=== PATIENT | male | born 1960 | race Caucasian/White ===

== ENCOUNTER 2017-04-13 13:20 | Day surgery (SDC) | payer OTHER ==
[~2017-04-13] VITALS: Ht 167.6 cm; Wt 93.4 kg
[~2017-04-13 13:20] MED LIST: B-1100 MG PO; FLECAINIDE ACE100 MG PO; FLECAINIDE ACET50 MG PO; FOLIC ACID1 MG PO; LOPRESSOR100 M1 PO; NEURONTIN300 MG PO; PERCOCET 5/31 TABLET PO; PRADAXA150 MG PO; PRADAXA75 MG PO; PROTONIX40 MG PO; THERAGRAN1 TABLET PO; VITAMIN B-1100 MG PO; VITAMIN D31000 UNIT PO
== END 2017-04-13 14:58 | disposition home or self-care (01) ==
LOC: PAIN 13:20 → SDC 14:30 → PAIN 14:58
DX: M47.816 Spondylosis without myelopathy or radiculopathy, lumbar region (principal); M51.36 Other intervertebral disc degeneration, lumbar region; M48.061 Spinal stenosis, lumbar region without neurogenic claudication; M54.16 Radiculopathy, lumbar region; G89.29 Other chronic pain; I48.91 Unspecified atrial fibrillation; F10.10 Alcohol abuse, uncomplicated; I10 Essential (primary) hypertension; K86.9 Disease of pancreas, unspecified
CPT/HCPCS: J1030; J2250; J3010; S0020

== ENCOUNTER 2017-05-01 13:09 | Day surgery (SDC) | payer OTHER ==
[~2017-05-01] VITALS: Ht 170.2 cm; Wt 95.7 kg
== END 2017-05-01 15:05 | disposition home or self-care (01) ==
LOC: PAIN 13:09 → SDC 13:45 → PAIN 13:45
DX: M47.816 Spondylosis without myelopathy or radiculopathy, lumbar region (principal); M51.36 Other intervertebral disc degeneration, lumbar region; M48.061 Spinal stenosis, lumbar region without neurogenic claudication; M99.83 Other biomechanical lesions of lumbar region; M54.16 Radiculopathy, lumbar region; G89.29 Other chronic pain; F10.10 Alcohol abuse, uncomplicated; I48.91 Unspecified atrial fibrillation; I10 Essential (primary) hypertension; K86.9 Disease of pancreas, unspecified
CPT/HCPCS: J1030; J2250; S0020

== ENCOUNTER 2017-07-18 07:47 | Day surgery (SDC) | payer OTHER ==
[~2017-07-18] VITALS: Ht 170.2 cm; Wt 95.7 kg
== END 2017-07-18 09:12 | disposition home or self-care (01) ==
LOC: PAIN 07:47
DX: M47.816 Spondylosis without myelopathy or radiculopathy, lumbar region (principal); M51.16 Intervertebral disc disorders with radiculopathy, lumbar region; M48.061 Spinal stenosis, lumbar region without neurogenic claudication; G89.29 Other chronic pain; I10 Essential (primary) hypertension; I48.91 Unspecified atrial fibrillation; Z79.01 Long term (current) use of anticoagulants
CPT/HCPCS: J1030; J2250; S0020